=== PATIENT | female | born 1995 | race Caucasian/White ===

== ENCOUNTER 2025-05-12 08:35 | Emergency (ER) | payer OTHER ==
[~2025-05-12] VITALS: Ht 167.6 cm; Wt 62.0 kg
[2025-05-12 08:51] VITALS: TEMP 36.7; O2SAT 100
[2025-05-12] MEDS ORDERED: TETANUS, DIPHTHERIA, PERTUSSIS VAC/PF 0.5ML (>10YR OLD) IM ONE (10:30)
[2025-05-12] MEDS: BACITRACIN ZINC OINT UDPKT TOP ONE (10:30)
[2025-05-12] MEDS: LIDOCAINE HCL/PF 1% 10 MG/ML 5ML VIAL INFIL ONE (10:30)
[2025-05-12] MEDS ORDERED: BO1 TP (13:02)
[2025-05-12] MEDS: TETANUS, DIPHTHERIA, PERTUSSIS VAC/PF 0.5ML (>10YR OLD) IM ONE (13:02)
[2025-05-12] MEDS ORDERED: SULF1TAB48 MT (13:02)
[2025-05-12 13:17] VITALS: BP 107/72; PULSE 81; RESP 12; O2SAT 99
== END 2025-05-12 13:18 | disposition home or self-care (01) ==
LOC: ER 08:35
DX: S81.011A Laceration without foreign body, right knee, initial encounter (principal); Z79.899 Other long term (current) drug therapy; X58.XXXA Exposure to other specified factors, initial encounter; Y93.89 Activity, other specified; Y92.89 Other specified places as the place of occurrence of the external cause; Y99.8 Other external cause status
CPT/HCPCS: 99283; 90715; 12002; 90471; J2003